=== PATIENT | female | born 1965 | race Caucasian/White ===

== ENCOUNTER 2019-09-22 13:47 | Emergency (ER) | payer SELFPAY ==
[~2019-09-22] VITALS: Ht 160 cm; Wt 68.5 kg
[2019-09-22 13:54] VITALS: BP 130/75; Ht 160 cm; Wt 68.5 kg
== END 2019-09-22 17:00 | disposition home or self-care (01) ==
LOC: ED 13:47
DX: J11.1 Influenza due to unidentified influenza virus with other respiratory manifestations (principal)
CPT/HCPCS: 87804